=== PATIENT | male | born 1985 | race Caucasian/White ===

== ENCOUNTER 2017-02-03 20:51 | Emergency (ER) | payer SELFPAY ==
[2017-02-03 21:06] VITALS: RESP 18; TEMP 98.8
--- NOTE | 2017-02-03 21:45 | EDPHY ---
General - History Smoking Status: Current every day smoker Time Seen by Provider: 02/03/17 21:22 Narrative: CHIEF COMPLAINT: Unable to pee for 3 days HISTORY OF PRESENT ILLNESS: Patient complaint of being unable to pee since Monday. He has severe pain in the suprapubic abdomen with this. No fever. Some flank pain. Does that he started Suboxone on Monday due to heroin use, and he feels this is the cause. This has happened to him in the past several years ago. This was relieved with Ambriz catheter and then self catheterization home. He saw urologist at that time with reportedly normal cystoscopy. He has had no fever. No vomiting. No upper abdominal pain. No instrumentation of the penis. Associated complaints or modify factors. REVIEW OF SYSTEMS: Ten systems reviewed and are negative unless otherwise noted in the HPI PCP: None. SPECIALISTS: Mental health professional, Peter Lozoya PAST MEDICAL HISTORY: New daily progressive headaches, opiate abuse PAST SURGICAL HISTORY: None SOCIAL HISTORY: Currently in drug rehabilitation at [facility] FAMILY HISTORY: Noncontributory EXAMINATION General Appearance: Alert, no distress, anxious Head: normocephalic, atraumatic Eyes: Pupils equal and round, no conjunctival pallor or injection ENT, Mouth: Mucous membranes moist Neck: Normal inspection, supple, non-tender Respiratory: Lungs are clear to auscultation wheezing, rhonchi or crackles Cardiovascular: Regular rate and rhythm. No murmur Gastrointestinal: Abdomen is soft and significantly tender suprapubically. No tympany. Firm bladder. Neurological: A&O, nonfocal, normal gait Skin: Warm and dry, no rash Extremities: Nontender, no pedal edema Psychiatric: Mood and affect normal DIFFERENTIAL DIAGNOSES: Including but not limited to urinary retention, neurogenic bladder, shy bladder , urethral stricture, BPH MDM: 9:40 p.m. Acute urinary retention of 3 days duration. Patient has had this in the past, attributing it to change in his opiates. He has seen a urologist in the past with reportedly normal cystoscopy. On Monday he started using Suboxone, he feels this is related. Bladder scanner to my examination reveals greater than 1300 mL as of urine. I immediately ordered Ambriz catheterization placement. This is currently being done at this time. I will check his creatinine and urinalysis as well. Other than his ordered discomfort, he is in no acute distress with vital signs stable. 10:05 p.m. Notified by RN that there was 1600 mL of urine returned when Ambriz placed. He is feeling significantly better after this. Urinalysis has been sent. Case discussed with Dr. Mcclain. We both a notified that the patient is asking for the Ambriz catheter to be removed. We will discuss with the patient. Creatinine is pending at this time. 10:30 p.m. Patient re-evaluated. Ambriz catheter still draining. He is still adamant about having the Ambriz catheter removed prior to discharge home. Creatinine is pending prior to doing this. 10:45 p.m. Creatinine is within normal limits. I have discussed with the patient acute regarding risks, benefits and alternatives of removing the Ambriz catheter. He is willing to assume the risk of removing the Ambriz catheter, including return to the emergency department or even possibility of bladder rupture. He would like to be discharged home without the Ambriz catheter. He says he will contact Urology. He feels that this will not return, as previous episodes of this have resolved after the 1st catheterization. He is discharged home stable condition with no abdominal pain with strict ED precautions for difficulty urinating. I provided the on-call Urology follow-up for him. SUPERVISION: Patient was independently examined, but I discussed the case with my secondary supervising physician Dr. Mcclain ([facility]) Medical Decision Making: PHYSICIAN DOCUMENTATION: The patient was evaluated and managed by the [employer]ician [employer] Admissions Counselor and myself. I have reviewed the chart and agree with the findings and plan of care as documented. In addition, I examined the patient myself at 2221. History confirmed as in 2006 the patient started taking opioids and had urinary retention requiring catheter but he had it removed and did not require to be replaced. In 2014 he was started on morphine and the same thing happen and he required a catheter for urinary retention but he had it taken out right away and he did not require it replaced. 3 days ago started on Suboxone and presents with similar presentation. Physical findings as follows: Normal motor and sensory in both feet. Toes downgoing, no clonus. Feels better after catheter placed with 1600 mL is out. Patient is demanding catheter be removed because of 2 previous episodes of urinary retention when he started a new opioid medication. He is warned of the risk of recurrence that he may need a repeat catheterization if we take out his Ambriz catheter. He states he understands the risks but wants it removed. He clearly has capacity to make decisions regarding his care. I think it is unlikely that he has spinal cord compromise or cauda equina syndrome. Ambulatory, no weakness or numbness in lower extremities. I am the secondary supervising physician. (Lexa Mcclain) - Objective Vital Signs: Initial Vital Signs Temperature (C) 37.1 C 02/03/17 21:00 Heart Rate 101 H 02/03/17 21:00 Respiratory Rate 18 02/03/17 21:00 Blood Pressure 131/85 H 02/03/17 21:00 O2 Sat (%) 96 02/03/17 21:00 O2 Delivery Mode Room Air Allergies/Adverse Reactions: ondansetron [From Zofran (as hydrochloride)] Allergy (Verified 02/03/17 21:06) Home Medications: Medication Instructions Recorded Amitriptyline HCl 02/03/17 Depakote 02/03/17 LYRICA 02/03/17 Phenergan 25mg (*) 02/03/17 Requip 02/03/17 Suboxone 12 mg-3 mg Sl Film 02/03/17 Tylenol 02/03/17 Vistaril 02/03/17 Laboratory Results: Laboratory Results 02/03/17 22:09 02/03/17 22:09 02/03/17 02/03/17 02/03/17 22:09 22:09 21:55 WBC 11.27 10^3/uL H 10^3/uL (3.80-9.50) RBC 4.75 10^6/uL 10^6/uL (4.40-6.38) Hgb 13.8 g/dL g/dL (13.7-17.5) Hct 39.3 % L % (40.0-51.0) MCV 82.7 fL fL (81.5-99.8) MCH 29.1 pg pg (27.9-34.1) MCHC 35.1 g/dL g/dL (32.4-36.7) RDW 12.3 % % (11.5-15.2) Plt Count 237 10^3/uL 10^3/uL (150-400) MPV 10.3 fL fL (8.7-11.7) Neut % (Auto) 59.4 % % (39.3-74.2) Lymph % (Auto) 26.5 % % (15.0-45.0) [place] % (Auto) 9.0 % % (4.5-13.0) Eos % (Auto) 1.9 % % (0.6-7.6) Baso % (Auto) 0.6 % % (0.3-1.7) Nucleat RBC Rel Count 0.0 % % (0.0-0.2) Absolute Neuts (auto) 6.70 10^3/uL H 10^3/uL (1.70-6.50) Absolute Lymphs (auto) 2.99 10^3/uL 10^3/uL (1.00-3.00) Absolute Monos (auto) 1.01 10^3/uL H 10^3/uL (0.30-0.80) Absolute Eos (auto) 0.21 10^3/uL 10^3/uL (0.03-0.40) Absolute Basos (auto) 0.07 10^3/uL 10^3/uL (0.02-0.10) Absolute Nucleated RBC 0.00 10^3/uL 10^3/uL (0-0.01) Immature Gran % 2.6 % H % (0.0-1.1) Immature Gran # 0.29 10^3/uL H 10^3/uL (0.00-0.10) Sodium 142 mEq/L mEq/L (134-144) Potassium 3.7 mEq/L mEq/L (3.5-5.2) Chloride 101 mEq/L mEq/L (97-110) Carbon Dioxide 28 mEq/l mEq/l (22-31) Anion Gap 13 mEq/L mEq/L (8-16) BUN 16 mg/dL mg/dL (7-23) Creatinine 0.7 mg/dL mg/dL (0.7-1.3) Estimated GFR > 60 Glucose 121 mg/dL H mg/dL (70-100) Calcium 8.9 mg/dL mg/dL (8.5-10.4) Urine Color Urine Appearance Urine pH Ur Specific [place] Urine Protein Urine Ketones Urine Blood Urine Nitrate Urine Bilirubin Urine Urobilinogen Ur Leukocyte Esterase Urine RBC Cancelled Urine WBC Cancelled Ur Epithelial Cells Cancelled Ur Renal Epithelial Cell Cancelled Urine Crystals Cancelled Ammonium Urate Crystals Cancelled Calcium Carbonate Cryst Cancelled Calcium Phosphate Cryst Cancelled Calcium Oxalate Crystal Cancelled Leucine Crystals Cancelled Cystine Crystals Cancelled Uric Acid Crystals Cancelled Triple Phos Crystals Cancelled Sulfonamide Crystals Cancelled Cholesterol Crystals Cancelled Tyrosine Crystals Cancelled Bilirubin Crystals Cancelled Amorphous Sediment Cancelled Urine Bacteria Cancelled Epithelial Casts Cancelled Fatty Casts Cancelled Hyaline Casts Cancelled Granular Casts Cancelled Waxy Casts Cancelled Broad Casts Cancelled RBC Casts Cancelled WBC Casts Cancelled Urine Mucus Cancelled Urine Trichomonas Cancelled Urine Yeast Cancelled Urine Sperm Cancelled Ur Oval Fat Bodies Cancelled Ur Free Fat Droplets Cancelled Urine Glucose Urine Comment Cancelled 02/03/17 21:55 WBC RBC Hgb Hct MCV MCH MCHC RDW Plt Count MPV Neut % (Auto) Lymph % (Auto) [place] % (Auto) Eos % (Auto) Baso % (Auto) Nucleat RBC Rel Count Absolute Neuts (auto) Absolute Lymphs (auto) Absolute Monos (auto) Absolute Eos (auto) Absolute Basos (auto) Absolute Nucleated RBC Immature Gran % Immature Gran # Sodium Potassium Chloride Carbon Dioxide Anion Gap BUN Creatinine Estimated GFR Glucose Calcium Urine Color YELLOW Urine Appearance CLEAR Urine pH 7.0 (5.0-7.5) Ur Specific [place] 1.020 (1.002-1.030) Urine Protein NEGATIVE (NEGATIVE) Urine Ketones TRACE H (NEGATIVE) Urine Blood NEGATIVE (NEGATIVE) Urine Nitrate NEGATIVE (NEGATIVE) Urine Bilirubin NEGATIVE (NEGATIVE) Urine Urobilinogen NEGATIVE EU EU (0.2-1.0) Ur Leukocyte Esterase NEGATIVE (NEGATIVE) Urine RBC 3-5 /hpf H /hpf (0-3) Urine WBC 1-3 /hpf /hpf (0-3) Ur Epithelial Cells NONE SEEN /lpf /lpf (NONE-1+) Ur Renal Epithelial Cell Urine Crystals Ammonium Urate Crystals Calcium Carbonate Cryst Calcium Phosphate Cryst Calcium Oxalate Crystal Leucine Crystals Cystine Crystals Uric Acid Crystals Triple Phos Crystals Sulfonamide Crystals Cholesterol Crystals Tyrosine Crystals Bilirubin Crystals Amorphous Sediment Urine Bacteria Epithelial Casts Fatty Casts Hyaline Casts Granular Casts Waxy Casts Broad Casts RBC Casts WBC Casts Urine Mucus TRACE /lpf /lpf (NONE-1+) Urine Trichomonas Urine Yeast Urine Sperm Ur Oval Fat Bodies Ur Free Fat Droplets Urine Glucose NEGATIVE (NEGATIVE) Urine Comment Departure - Departure Disposition: Home, Routine, Self-Care Clinical Impression: Acute retention of urine Condition: Good Instructions: Urinary Retention in Men (ED) Additional Instructions: 1. Contact the on-call urologist as provided and as discussed 2. Return to emergency department any difficulty urinating or abdominal pain Referrals: Vidal Oliver MD [Medical Doctor] - As per Instructions
[2017-02-03 22:21] LABS: PLATELET COUNT 237 10^3/uL (150-400)
[2017-02-03 22:55] VITALS: BP 129/72; PULSE 80; O2SAT 97
== END 2017-02-03 23:02 | disposition home or self-care (01) ==
PROC: 0T9B70Z Drainage of Bladder with Drainage Device, Via Natural or Artificial Opening (ICD-10-PCS; principal; 2017-02-03)
DX: R33.9 Retention of urine, unspecified (principal); F17.200 Nicotine dependence, unspecified, uncomplicated